=== PATIENT | female | born 1950 | race African-American/Black ===

== ENCOUNTER 2022-07-15 15:46 | Emergency (ER) | payer MEDICARE, MEDICAID ==
[~2022-07-15] VITALS: Ht 160 cm; Wt 52.2 kg
--- NOTE | 2022-07-15 16:00 | NUR ---
BIB private ambulance, pt triaged and is waiting in ambulance [facility] in ER hallway. The ER is saturated and there are no open beds at this time.
--- NOTE | 2022-07-15 17:10 | NUR ---
BIB private ambulance from [facility] with c/o jaundice. Per report pt has hx of liver disease/failure and was referred to ER by Dr. James Sharma. Pt to room 3.
--- NOTE | 2022-07-15 17:45 | NUR ---
PT IN NAD; VSS. DENIES PAIN OR DISCOMFORT AT THIS TIME
--- NOTE | 2022-07-15 18:50 | NUR ---
Pt kept on pulling out EKG leads.
[2022-07-15 19:21] LABS: HEMATOCRIT 29.6 % (31.2-41.9); MEAN CORPUSCULAR HEMOGLOBIN 27.8 uug (24.7-32.8); MEAN CORPUSCULAR VOLUME 80.9 fL (75.5-95.3); PLATELET COUNT (AUTO) 395 K/uL (179-408)
[2022-07-15 19:44] LABS: CARBON DIOXIDE 28 mmol/L (21-32); CHLORIDE 105 mmol/L (98-107); CREATININE 0.7 mg/dL (0.6-1.3); GLUCOSE 114 mg/dL (74-106); POTASSIUM 2.9 mmol/L (3.5-5.1); UREA NITROGEN, BLOOD 12 mg/dL (7-18)
[2022-07-15 19:53] LABS: ALANINE AMINOTRANSFERASE 52 U/L (14-59); ALKALINE PHOSPHATASE 608 U/L (50-136); ASPARTATE AMINOTRANSFERASE 29 U/L (15-37); BILIRUBIN,DIRECT 9.1 mg/dL (0.0-0.2); BILIRUBIN,TOTAL 11.4 mg/dL (0.2-1.0); LIPASE 57 U/L (73-393); TOTAL PROTEIN, SERUM 7.3 g/dL (6.4-8.2)
--- NOTE | 2022-07-15 20:00 | NUR ---
COLLECTED U/A, SENT TO LAB
[2022-07-15 21:07] LABS: *BLOOD, URINE NEGATIVE (NEGATIVE); *KETONES,URINE TRACE (NEGATIVE); LEUKOCYTE ESTERASE ,URINE NEGATIVE (NEGATIVE); NITRITE, URINE NEGATIVE (NEGATIVE); PH,URINE 5.5 (5.0-8.0); UGLUCOSE TRACE (NEGATIVE)
[2022-07-15 21:13] LABS: *BILIRUBIN,URIN 3+ (NEGATIVE)
[2022-07-15 21:14] LABS: *CLARITY,URINE HAZY (CLEAR); *COLOR,URINE AMBER (YELLOW)
[2022-07-15 21:15] LABS: BACTERIA,URINE FEW /HPF (NONE SEEN); RBC,URINE 0-3 /HPF (0-3); SQUAMOUS EPITHELIAL CELL,UR FEW /HPF (NONE SEEN); WBC,URINE 0-3 /HPF (0-3)
[2022-07-15] MEDS ORDERED: CLINDAMYCIN PHOSPHATE IV 900 MG in IV DEXTROSE 5% 100 ML IV ONE (21:30)
[2022-07-15] MEDS ORDERED: IMIPENEM/CILASTATIN SODIUM 500 MG in IV NORMAL SALINE 100 ML IV ONE (21:30)
[2022-07-15] MEDS ORDERED: SWABABLE VALVE TRANSFER SET EA MC ONE (21:45)
[2022-07-15] MEDS ORDERED: IV NORMAL SALINE 250 ML IV ONE (21:45)
[2022-07-15] MEDS ORDERED: IOHEXOL 300MG/ML 100 ML INFUS..BTL ONE (21:45)
--- NOTE | 2022-07-15 21:57 | NUR ---
called [facility] to ask questions about CT with contrast. talked to Justo haines.
--- NOTE | 2022-07-15 22:00 | NUR ---
picked up by sound technician.
[2022-07-15] MEDS ORDERED: CLINDAMYCIN 900MG/D5W 100ML IVPB **ER PYXIS ONLY IJ ONE (22:24)
[2022-07-15] MEDS ORDERED: MEROPENEM 1,000 MG in IV NORMAL SALINE 100 ML IV ONE (22:45)
[2022-07-15] MEDS ORDERED: MEROPENEM 1GM/NS 100ML IVPB **ER PYXIS ONLY IV ONE (23:10)
[2022-07-16] MEDS: MAGNESIUM SULFATE/D5W 100 ML IV SCH ×2 (00:30→02:04)
[2022-07-16] MEDS: POTASSIUM CHLORIDE 50 ML IV SCH ×6 (00:33→04:52)
[2022-07-16] MEDS ORDERED: POTASSIUM CHLORIDE 50 ML ONE ×4 (01:07→04:52)
[2022-07-16] MEDS ORDERED: MAGNESIUM SULFATE/D5W 100 ML ONE ×2 (01:08→02:01)
--- NOTE | 2022-07-16 03:33 | NUR ---
Called [facility] and spoke to Trina who requested facesheet and clinicals to be faxed to .
--- NOTE | 2022-07-16 06:00 | NUR ---
Accepted by Dr Verde from [facility] in [place]. Waiting for transfer information from transfer center.
--- NOTE | 2022-07-16 06:30 | NUR ---
Trina from [facility] said she will call back for Rm # and ambulance ETA.
--- NOTE | 2022-07-16 09:00 | NUR ---
Pt resting in [facility] with NAD noted at this time. Pending transfer to [facility].
--- NOTE | 2022-07-16 10:30 | NUR ---
Received telephone call from Davey from [facility] ([phone]) who stated pt will be going to [address] [place] [address] room 1704, call [phone] for report. 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
--- NOTE | 2022-07-16 12:30 | NUR ---
Attempted to give telephone to [facility], called [phone] for room 1704. Staff stated they are not expecting this pt and did not want to receive report. Called Davey at transfer center who confirmed telephone number and room.
--- NOTE | 2022-07-16 12:55 | NUR ---
Received telephone call from [facility] from transfer center who stated pt will now be going to [address]16, for report.
--- NOTE | 2022-07-16 13:10 | NUR ---
Pt trans to [facility] via [facility]. SBAR report given to KIZZY Verduzco via telephone.
== END 2022-07-16 13:14 | disposition short-term general hospital (02) ==
LOC: ER 15:46
DX: C25.9 Malignant neoplasm of pancreas, unspecified (principal); G30.9 Alzheimer's disease, unspecified; F02.80 Dementia in other diseases classified elsewhere, unspecified severity, without behavioral disturbance, psychotic disturbance, mood disturbance, and anxiety; I10 Essential (primary) hypertension; E78.5 Hyperlipidemia, unspecified; Z88.0 Allergy status to penicillin; Z88.2 Allergy status to sulfonamides; R00.0 Tachycardia, unspecified; I44.0 Atrioventricular block, first degree; I81 Portal vein thrombosis; E87.6 Hypokalemia; R17 Unspecified jaundice; D64.9 Anemia, unspecified; D72.829 Elevated white blood cell count, unspecified
CPT/HCPCS: 99285; 74177; 96365; 76705; 71045; 96366; 87426; 80076; 80048; 81001; 82140; 83690; 85025; 87040 ×2; 84484; 36415 ×2; 93005; 96368; 83605; 93971; 85730; J3490 ×2; J0743; J2185; Q9967; J3475 ×2; J3480 ×4; A4663